=== PATIENT | female | born 1930 | race Caucasian/White ===

== ENCOUNTER → 2017-05-26 | Outpatient (CLI) | payer MEDICARE, OTHER ==
[~2017-05-26] MED LIST: ACETAMINOPHEN PO; ASPIRIN PO; ATENOLOL PO; CALCIUM + D 6001 TA1 PO; CALCIUM 500 + D1 TAB PO; CALCIUM PO; CLONIDINE PO; FISH OIL 1,0001 CA2 PO; FISH OIL 1,0001 CAP PO; FLAGYL PO; FLAX SEED OIL1000 M1 PO; FLAX SEED OIL1000 MG PO; FOSAMAX PO; FUROSEMIDE40 MG PO; HYDRALAZINE HCL25 MG PO; HYDROCHLOROTHIA25 MG PO; KLOR-CON PO; KROGER; LISINOPRIL PO; LORTAB 7.5-5001 TAB PO; NIACIN PO; PERCOCET PO; PERCOCET5/325 PO; PHENERGAN25 MG PO; PLAVIX PO; PRAVASTATIN SOD40 MG PO; PRILOSEC PO; SYNTHROID PO; ZETIA PO; ZOCOR PO; ZYVOX PO
--- NOTE | ~2017-05-26 | MY26 ---
[facility] A Service of [facility] RADIOLOGY TEXT RESULTS PATIENT: HEMALATHA LINDSEY LOCATION: [facility] : 30 UNIT #: [id number] AGE: [address]: Olman Phipps MD SEX: F ORDER DR: [id number] [facility] [address] [place], [place] [address] [id number] O MR#: [id number] Acc #: [id number] NAME: HEMALATHA LINDSEY. : 1930 SEX: F STUDY DATE/TIME: 05/26/2017 11:34 UNIT: [facility] ROOM: STUDY DESCRIPTION: [facility] DIAGNOSTIC W/ CAD BILAT Attending Physician: Olman Phipps M.D. Referring Physician: Olman Phipps M.D. Ordering Physician: Olman Phipps M.D. Primary Care Physician: Brandon Varma M.D. MEDICAL IMAGING REPORT This report is preliminary unless electronic signature is present EXAM Bilateral digital diagnostic mammogram INDICATIONS History of right breast cancer status post lumpectomy 2011. Followup/screening. TECHNIQUE Bilateral CC and MLO views of the right true lateral view obtained on a digital mammography unit. FDA-approved CAD device utilized. COMPARISON STUDIES 05/20/2016. FINDINGS Scattered fibroglandular density. No dominant mass or suspicious calcifications. Post lumpectomy change in the right breast. Extensive bilateral benign calcifications are unchanged. IMPRESSION Benign bilateral diagnostic mammogram. Recommend patient continue with yearly followup/screening. BIRADS: 2 Benign Finding. Patients over the age of 40 are entered into a reminder system with target due date for the next mammogram. A result letter will also be sent to the patient. Dictated by... Adam Turk M.D. [facility] A Service of [facility] RADIOLOGY TEXT RESULTS PATIENT: HEMALATHA LINDSEY LOCATION: [facility] : 30 UNIT #: [id number] AGE: [address]: Olman Phipps MD SEX: F ORDER DR: THIS IS AN ELECTRONICALLY VERIFIED REPORT Adam Turk M.D. at 05/27/2017 7:01 AM EED/chel TD: 05/26/2017 17:29 JOB #: [id number] MEDICAL IMAGING REPORT Page 1 of 1 COPY
== END | disposition home or self-care (01) ==
LOC: CWCC 05-24 11:00
DX: C50.919 Malignant neoplasm of unspecified site of unspecified female breast (principal); Z92.3 Personal history of irradiation; Z98.890 Other specified postprocedural states
CPT/HCPCS: G0204